=== PATIENT | male | born 2000 | race Caucasian/White ===

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

== ENCOUNTER 2021-10-05 18:07 | Emergency (ER) | payer OTHER ==
[2021-10-05 20:48] LABS: BASO % 0.3 % (0.0-1.0); EOS # 0.1 10*3/uL (0.0-0.4); HEMATOCRIT 45.3 % (42.0-52.0); LYMPH # 2.5 10*3/uL (1.3-4.4); LYMPH % 26.4 % (27.0-41.0); MEAN CELL VOLUME 79.9 fl (80.0-94.0); MEAN CORPUSCULAR HGB 24.7 pg (27.0-31.0); MEAN CORPUSCULAR HGB CONC 30.9 g/dl (33.0-37.0); MEAN PLATELET VOLUME 9.2 fl (9.6-12.3); MONO # 0.6 10*3/uL (0.1-1.0); NEUT # 6.2 10*3/uL (2.3-7.9); NEUT % 65.5 % (47.0-73.0); PLATELET COUNT AUTOMATED 289 10*3/uL (130-400); RED BLOOD COUNT 5.67 10*6/uL (4.50-5.90); RED CELL DISTRI WIDTH 13.8 % (0-14.5); WHITE BLOOD COUNT 9.5 10*3/uL (4.8-10.8)
[2021-10-05 21:04] LABS: ALKALINE PHOSPHATASE 80 U/L (45-117); BUN 9 mg/dl (7-24); CHLORIDE 108 mmol/L (98-107); CREATININE 0.85 mg/dL (0.70-1.30); LIPASE 57 U/L (73-393); POTASSIUM 3.6 mmol/L (3.5-5.1); SGOT/AST 28 IU/L (3-35); SGPT/ALT 52 U/L (12-78); SODIUM 141 mmol/L (136-145)
== END 2021-10-05 21:19 | disposition home or self-care (01) ==
LOC: ED 18:07
PROVIDERS: Emergency Medicine
DX: K21.9 Gastro-esophageal reflux disease without esophagitis (principal); Z91.013 Allergy to seafood

== ENCOUNTER → 2021-10-10 | Outpatient (CLI) | payer OTHER | END | disposition home or self-care (01) | LOC: RAD 09:30 | PROVIDERS: ATTEND Nurse Practitioner Family | DX: R10.12 Left upper quadrant pain (principal); K59.00 Constipation, unspecified ==

== ENCOUNTER 2022-05-31 07:48 | Emergency (ER) | payer OTHER ==
[~2022-05-31] VITALS: Wt 131.5 kg
[2022-05-31] MEDS ORDERED: SERTRALINE HYDR25 MG PO (08:10)
[2022-05-31 08:16] LABS: BASO % 0.3 % (0.0-1.0); EOS # 0.1 10*3/uL (0.0-0.4); EOS % 0.7 % (1.0-4.0); HEMATOCRIT 43.2 % (42.0-52.0); LYMPH # 2.3 10*3/uL (1.3-4.4); LYMPH % 21.5 % (27.0-41.0); MEAN CORPUSCULAR HGB 24.7 pg (27.0-31.0); MEAN CORPUSCULAR HGB CONC 31.7 g/dl (33.0-37.0); MONO # 0.7 10*3/uL (0.1-1.0); MONO % 6.7 % (3.0-9.0); NEUT # 7.5 10*3/uL (2.3-7.9); NEUT % 70.1 % (47.0-73.0); PLATELET COUNT AUTOMATED 297 10*3/uL (130-400); RED BLOOD COUNT 5.54 10*6/uL (4.50-5.90); WHITE BLOOD COUNT 10.6 10*3/uL (4.8-10.8)
[2022-05-31 08:32] LABS: ALKALINE PHOSPHATASE 71 U/L (46-116); BUN 8 mg/dl (9-23); CHLORIDE 103 mmol/L (98-107); CREATININE 0.84 mg/dL (0.70-1.30); POTASSIUM 3.6 mmol/L (3.4-5.1); SGPT/ALT 35 U/L (10-49); SODIUM 139 mmol/L (136-145); TOTAL PROTEIN 7.7 gm/dL (6.0-8.0)
== END 2022-05-31 09:03 | disposition home or self-care (01) ==
LOC: ED 07:48
PROVIDERS: Student in an Organized Health Care Education/Training Program
DX: R68.83 Chills (without fever) (principal); F41.9 Anxiety disorder, unspecified; Z91.013 Allergy to seafood

== ENCOUNTER 2022-06-04 23:06 | Emergency (ER) | payer OTHER ==
[~2022-06-04] VITALS: Ht 177.8 cm; Wt 133.8 kg
[~2022-06-04 23:06] MED LIST changes: +SERTRALINE HYDR25 MG PO
== END 2022-06-05 02:00 | disposition home or self-care (01) ==
LOC: ED 23:06
DX: M54.6 Pain in thoracic spine (principal); Z91.013 Allergy to seafood

== ENCOUNTER 2022-06-10 17:53 | Emergency (ER) | payer OTHER ==
[~2022-06-10] VITALS: Ht 177.8 cm; Wt 131.5 kg
[2022-06-10 18:33] LABS: BASO % 0.2 % (0.0-1.0); EOS # 0.1 10*3/uL (0.0-0.4); EOS % 1.4 % (1.0-4.0); HEMATOCRIT 43.7 % (42.0-52.0); LYMPH # 2.2 10*3/uL (1.3-4.4); LYMPH % 25.9 % (27.0-41.0); MEAN CELL VOLUME 78.3 fl (80.0-94.0); MEAN CORPUSCULAR HGB 24.7 pg (27.0-31.0); MEAN CORPUSCULAR HGB CONC 31.6 g/dl (33.0-37.0); MONO # 0.6 10*3/uL (0.1-1.0); MONO % 7.5 % (3.0-9.0); NEUT # 5.5 10*3/uL (2.3-7.9); NEUT % 64.2 % (47.0-73.0); PLATELET COUNT AUTOMATED 282 10*3/uL (130-400); RED BLOOD COUNT 5.58 10*6/uL (4.50-5.90); RED CELL DISTRI WIDTH 14.2 % (0-14.5); WHITE BLOOD COUNT 8.6 10*3/uL (4.8-10.8)
[2022-06-10 18:52] LABS: ALKALINE PHOSPHATASE 73 U/L (46-116); BUN 11 mg/dl (9-23); CHLORIDE 105 mmol/L (98-107); SGPT/ALT 33 U/L (10-49); TOTAL PROTEIN 7.6 gm/dL (6.0-8.0)
[2022-06-10 19:10] LABS: BILIRUBIN Negative (Negative); BLOOD 1+ (Negative); CLARITY Clear (Clear); COLOR Yellow (Yellow); GLUCOSE Negative (Negative); KETONE Negative (Negative); LEUKO ESTERASE Negative (Negative); NITRITE Negative (Negative); PH 5.5 (4.5-8.0); SPECIFIC GRAVITY 1.025 (1.001-1.030)
[2022-06-10 19:50] LABS: CALCIUM OXALATE CRYSTALS 2+; WBC 0-2 wbc/hpf (0-5)
[2022-06-10] MEDS ORDERED: MIRALAX POWDER17 G1 PO (20:09)
== END 2022-06-10 20:17 | disposition home or self-care (01) ==
LOC: ED 17:53
PROVIDERS: Nurse Practitioner Family
DX: N20.0 Calculus of kidney (principal); Q89.09 Congenital malformations of spleen; Z87.442 Personal history of urinary calculi; Z91.013 Allergy to seafood

== ENCOUNTER 2022-06-30 15:55 | Emergency (ER) | payer OTHER ==
[~2022-06-30] VITALS: Ht 177.8 cm; Wt 131.5 kg
[~2022-06-30 15:55] MED LIST changes: +MIRALAX POWDER17 G1 PO
[2022-06-30 18:18] LABS: BILIRUBIN Negative (Negative); BLOOD 3+ (Negative); CLARITY Cloudy (Clear); COLOR Dark Yellow (Yellow); GLUCOSE Negative (Negative); KETONE 1+ (Negative); LEUKO ESTERASE 1+ (Negative); NITRITE Negative (Negative); PH 5.5 (4.5-8.0); SPECIFIC GRAVITY >= 1.030 (1.001-1.030)
[2022-06-30] MEDS ORDERED: FLOMAX0.4 MG PO (18:29)
[2022-06-30 18:38] LABS: BACTERIA 1+; RBC TNTC rbc/hpf (0-2)
[2022-06-30 18:39] LABS: CALCIUM OXALATE CRYSTALS 1+; EPITHELIAL CELLS 0-2; MUCOUS 1+
== END 2022-06-30 18:38 | disposition home or self-care (01) ==
LOC: ED 15:55
PROVIDERS: Student in an Organized Health Care Education/Training Program
DX: N20.1 Calculus of ureter (principal); Z91.013 Allergy to seafood